=== PATIENT | male | born 1955 | race Caucasian/White ===

== ENCOUNTER 2016-08-07 12:29 | Emergency (ER) | payer SELFPAY ==
[2016-08-07] MEDS ORDERED: CEFAZOLIN 1 Gram 1 GM/50 ML BAG IVPB ONE (12:46)
--- NOTE | 2016-08-07 12:47 | Emergency Department Record ---
History of Present Illness - General Time Seen by Provider: 08/07/16 12:40 Source: Patient Mode of Arrival: Ambulatory Limitations: No limitations - History of Present Illness Initial comments: 60 yo male presents with left sided calf pain for 3 months. During that time it has been checked once for a DVT at [facility]. He has had multiple international flights as well. He has warmth, redness, swelling and pain. No numbness or tingling. No fever. No pus or oozing. He was treated with a water pill with some improvement but he had bilateral swelling then. PCP Hers[place]. DEL ROSARIO Complaint: Extremity pain, Extremity swelling -: Month(s) (3) Location: Left History of Same: Yes -: No Arthralgia, No Fever, Yes Myalgia Quality: Aching Consistency: Constant Improves with: Elevation, Immobilization Worsens with: Exertion, Palpation, Walking, Weight bearing Associated Symptoms: Denies other symptoms - Related Data Home Medications Medication Instructions Recorded Confirmed Last Taken Insulin Regular, Human [Humulin R 30 unit SQ TID 08/07/16 08/07/16 08/06/16 U-500 Kwikpen] Previous Rx's Medication Instructions Recorded Cephalexin [Keflex] 500 mg PO QID #40 cap 08/07/16 Allergies Allergy/AdvReac Type Severity Reaction Status Date / Time NO KNOWN DRUG ALLERGY Allergy no Uncoded 08/07/16 12:46 allergies Review of Systems Constitutional: Denies: Chills, Fever, Malaise, Weakness Eyes: Denies: Eye discharge Respiratory: Denies: Cough, Dyspnea, Hemoptysis, Stridor, Wheezes Cardiovascular: Denies: Chest pain, Palpitations, Syncope Endocrine: Denies: Fatigue Gastrointestinal: Denies: Abdominal pain, Diarrhea, Nausea, Vomiting Genitourinary: Denies: Dysuria, Frequency, Hematuria, Urgency Musculoskeletal: Reports: As per HPI, Myalgia. Denies: Arthralgia, Back pain, Joint swelling Skin: Reports: As per HPI, Change in color Neurological: Denies: Headache Psychiatric: Denies: Anxiety Hematological/Lymphatic: Denies: Blood Clots, Easy bleeding, Easy bruising, Swollen glands Physical Exam - General General Appearance: Alert, Oriented x3, Cooperative, No acute distress Limitations: No limitations - Head Head exam: Normal inspection - Eye Eye exam: Normal appearance, PERRL. negative: Conjunctival injection, Periorbital swelling, Scleral icterus - ENT ENT exam: Normal exam Ear exam: Normal external inspection Nasal Exam: Normal inspection Mouth exam: Normal external inspection - Neck Neck exam: Normal inspection, Full ROM. negative: Tenderness - Respiratory Respiratory exam: Normal lung sounds bilaterally. negative: Respiratory distress - Cardiovascular Cardiovascular Exam: Regular rate, Normal rhythm, Normal heart sounds Peripheral Pulses: 2+: Dorsalis Pedis (L) - GI/Abdominal GI/Abdominal exam: Soft. negative: Tenderness - Rectal Rectal exam: Deferred - exam: Deferred - Extremities Extremities exam: Full ROM, Normal capillary refill, Pedal edema, Tenderness. negative: Normal inspection Image of Full Body: 1 - mild swelling compared to the right, mild erythema and warm, few tiny abrasions - Back Back exam: Reports: Normal inspection, Full ROM. Denies: Muscle spasm, Rash noted, Tenderness - Neurological Neurological exam: Alert, Normal gait, Oriented X3, Reflexes normal - Psychiatric Psychiatric exam: Normal affect, Normal mood. negative: Agitated - Skin Skin exam: Erythema Course - Reevaluation(s) Reevaluation #1: The labs were reviewed No acute changes on the CBC CRP is 3.2 UA is normal at 6.7 Glucose is normal at 400 with a normal HCO3 and AG. No DKA 08/07/16 13:49 Reevaluation #2: The venous doppler was negative for DVT WE discussed home care and antibiotics We discussed close glucose monitoring while he has an infection 08/07/16 16:16 Medical Decision Making - Lab Data Result diagrams: 08/07/16 13:11 08/07/16 13:11 Disposition Disposition: Discharge Clinical Impression: Cellulitis Qualifiers: Site of cellulitis: extremity Site of cellulitis of extremity: lower extremity Laterality: left Qualified Code(s): L03.116 - Cellulitis of left lower limb Disposition: Home, Self-Care Condition: (1) Good Instructions: Cellulitis (ED) Additional Instructions: Elevate the leg as much as possible Keflex 4 times daily Return immediately if worse, pain, fever, drainage or concerns Prescriptions: Cephalexin [Keflex] 500 mg PO QID #40 cap Time of Disposition: 16:17
[2016-08-07 13:19] LABS: HEMATOCRIT 36.9 % (42.0-52.0); HEMOGLOBIN 12.2 gm/dl (14.0-18.0); MEAN CELL VOLUME 79.2 fl (81-97); MEAN CORPUSCULAR HGB CONC 33.1 g/dl (32-36); MEAN PLATELET VOLUME 9.6 fl (7.4-10.4); PLATELET COUNT 352 K/uL (130-400); RED BLOOD COUNT 4.66 M/uL (4.40-5.70); RED CELL DISTRIBUTION WIDTH 14.3 % (11.5-14.5); WHITE BLOOD COUNT W/O DIFF 9.8 K/uL (4.2-12.2)
[2016-08-07 13:29] LABS: MEAN CORPUSCULAR HEMOGLOBIN 26.1 pg (27-33)
[2016-08-07 13:30] LABS: INR 0.9; PARTIAL THROMBOPLASTIN TIME 27.1 SECONDS (24.5-39.1); PROTHROMBIN TIME (PATIENT) 10.2 SECONDS (9.5-12.1)
[2016-08-07 13:32] LABS: ALBUMIN 4.2 gm/dL (3.5-5.0); ALKALINE PHOSPHATASE 131 U/L (38-126); ALT/SGPT 37 U/L (21-72); ANION GAP 12.6 (7-16); AST/SGOT 22 U/L (17-59); BILIRUBIN,TOTAL 0.71 mg/dL (0.2-1.3); BLOOD UREA NITROGEN 15 mg/dL (9-20); C-REACTIVE PROTEIN 3.2 mg/dL (0.0-0.9); CARBON DIOXIDE 25.4 mmol/L (22-30); CREATININE 0.9 mg/dL (0.66-1.25); EST GLOMERULAR FILTRATION RATE > 60 ml/min; GLUCOSE,RANDOM 400 mg/dL (70-110); TOTAL PROTEIN 8.4 gm/dL (6.3-8.2)
[2016-08-07 13:37] LABS: PLATELET ESTIMATE NORMAL (NORMAL)
[2016-08-07 14:02] LABS: ERYTHROCYTE SEDIMENTATION RATE 80 mm/hr (0-20)
[2016-08-07] MEDS ORDERED: HUMULIN R 100 UNIT/ML VIAL SQ ONE (14:04)
--- NOTE | 2016-08-08 08:45 | US VENOUS DOPPLER REPORT ---
DATE: 08/07/2016. EXAM: VENOUS ULTRASOUND OF THE RIGHT LOWER EXTREMITY. HISTORY: RIGHT CALF PAIN. TECHNIQUE: Sonographic evaluation of the venous system of the right lower extremity was performed with the addition of Doppler compression augmentation. FINDINGS: There is no evidence of deep vein thrombosis identified in the greater saphenous, femoral, to the popliteal vein. The peroneal, posterior tibial, and anterior tibial veins are patent. IMPRESSION: NO SONOGRAPHIC EVIDENCE OF DEEP VEIN THROMBOSIS. JOB NUMBER: [id number] [facility]
== END 2016-08-07 16:35 | disposition home or self-care (01) ==
LOC: ER 12:29
DX: L03.116 Cellulitis of left lower limb (principal); M79.662 Pain in left lower leg; E11.9 Type 2 diabetes mellitus without complications; Z79.4 Long term (current) use of insulin
CPT/HCPCS: 99284 ×2; 96374; 96372; 84550; 85651; 85730; 85610; 86140; 80053; 85027; 93971; J0690

== ENCOUNTER 2017-03-06 18:09 | Inpatient (IN) | payer MEDICAID ==
--- NOTE | 2017-03-06 18:55 | Emergency Department Record ---
History of Present Illness - General Stated Complaint: LEFT LEG PAIN Time Seen by Provider: 03/06/17 18:49 Source: Patient Mode of Arrival: Ambulatory Limitations: No limitations - History of Present Illness Initial comments: 61 yo male presents to ED for evaluation of worsening redness, swelling, and "weeping discharge" from his left lower extremity. Patient reports a history of lymphedema for some time, has been taking Clindamycin and Doxycycline for 10 months with no significant improvement. Patient reports undergoing Doppler's x 2 that have all been negative for DVT. Patient denies history of CHF. Location: Left Radiation: Non-Radiating Quality: Aching Consistency: Constant Improves with: None Worsens with: None Associated Symptoms: Denies other symptoms - [place] Coma Scale Eye Response: (4) Open spontaneously Motor Response: (6) Obeys commands Verbal Response: (5) Oriented [place] Total: 15 - Related Data Allergies Allergy/AdvReac Type Severity Reaction Status Date / Time NO KNOWN DRUG ALLERGY Allergy no Uncoded 03/06/17 19:03 allergies Review of Systems Constitutional: Denies: Chills, Fever, Malaise, Night sweats Eyes: Denies: Eye discharge, Eye pain ENT: Denies: Congestion, Ear pain, Epistaxis Respiratory: Reports: Dyspnea. Denies: Cough Cardiovascular: Reports: Dyspnea on exertion, Edema. Denies: Chest pain Endocrine: Denies: Fatigue, Heat or cold intolerance Gastrointestinal: Denies: Abdominal pain, Nausea, Vomiting Genitourinary: Denies: Incontinence, Retention Musculoskeletal: Denies: Arthralgia, Back pain, Gout, Joint swelling Skin: Reports: Change in color. Denies: Bruising Neurological: Denies: Abnormal gait, Confusion, Headache Psychiatric: Denies: Anxiety Hematological/Lymphatic: Denies: Anemia, Blood Clots Past Medical History - SOCIAL HISTORY Drug Use: None - RESPIRATORY Hx Respiratory Disorders: No - CARDIOVASCULAR Hx Cardio Disorders: Yes Hx Hypertension: Yes - NEURO Hx Neuro Disorders: No - GI Hx GI Disorders: Yes Hx Reflux: Yes - Hx Genitourinary Disorders: No - ENDOCRINE Hx Endocrine Disorders: Yes Hx Diabetes: Yes - MUSCULOSKELETAL Hx Musculoskeletal Disorders: No - PSYCH Hx Psych Problems: No - HEMATOLOGY/ONCOLOGY Hx Hematology/Oncology Disorders: No Physical Exam - General General Appearance: Alert, Oriented x3, Cooperative, Mild distress Limitations: No limitations - Head Head exam: Atraumatic, Normocephalic, Normal inspection Head exam detail: negative: Abrasion, Contusion, Mason's sign, General tenderness, Hematoma, Laceration - Eye Eye exam: Normal appearance. negative: Conjunctival injection, Periorbital swelling, Periorbital tenderness, Scleral icterus - ENT Ear exam: negative: Auricular hematoma, Auricular trauma Nasal Exam: negative: Active bleeding, Discharge, Dried blood, Foreign body Mouth exam: negative: Drooling, Laceration, Muffled voice, Tongue elevation - Neck Neck exam: Normal inspection. negative: Meningismus, Tenderness - Respiratory Respiratory exam: Normal lung sounds bilaterally. negative: Respiratory distress, Rhonchi, Stridor, Wheezes - Cardiovascular Cardiovascular Exam: Regular rate, Normal rhythm, Normal heart sounds - GI/Abdominal GI/Abdominal exam: Soft. negative: Rebound, Rigid, Tenderness - Rectal Rectal exam: Deferred - exam: Deferred - Extremities Extremities exam: Pedal edema, Other (Bilateral LE edema with venous venous stasis changes present to the LEs, mild clear fluid is present from the posterior aspect of the LLE.). negative: Calf tenderness, Tenderness - Back Back exam: Denies: CVA tenderness (R), CVA tenderness (L) - Neurological Neurological exam: Alert, Normal gait, Oriented X3 - Psychiatric Psychiatric exam: Normal affect, Normal mood - Skin Skin exam: Erythema Type of lesion: negative: abrasion Course - Reevaluation(s) Reevaluation #1: 03/06/17 19:10 EKG: NSR 99 Normal axis, RBBB No acute ST-T wave changes Reevaluation #2: 03/06/17 20:01 Labs reviewed, WBC 10.8, Hgb 10.7 with HCT 26. ESR 79 CRP 4.86 BUN 31/Creatinine 1.4. Glucose 498. Insulin ordered. CXR: No acute process identified. Case was discussed with hSayna, will admit for failed outpatient cellulitis of the left lower extremity and hyperglycemia. Medical Decision Making - Lab Data Result diagrams: 03/06/17 19:17 03/06/17 19:17 Disposition Disposition: Admit Clinical Impression: Hyperglycemia Cellulitis of lower extremity Qualifiers: Laterality: left Qualified Code(s): L03.116 - Cellulitis of left lower limb Disposition: Still a Patient at [facility] Decision to Admit: Admit from ER Decision to Admit Date: 03/06/17 Decision to Admit Time: 20:06 Condition: (2) Stable Time of Disposition: 20:06 Quality - Quality Measures Quality Measures: N/A - Blood Pressure Screening Does Patient Have Any of the Following: No Blood Pressure Classification: Hypertensive Reading Systolic Measurement: 176 Diastolic Measurement: 74 Screening for High Blood Pressure: < First Hypertensive BP, F/U Documented > [ [id number]] First Hypertensive Follow-up Interventions: Referral to alternative/primary care provider.
[2017-03-06 19:23] LABS: HEMATOCRIT 33.5 % (42.0-52.0); HEMOGLOBIN 10.8 gm/dl (14.0-18.0); MEAN CELL VOLUME 83.1 fl (81-97); MEAN CORPUSCULAR HGB CONC 32.2 g/dl (32-36); MEAN PLATELET VOLUME 10.2 fl (7.4-10.4); PLATELET COUNT 351 K/uL (130-400); RED BLOOD COUNT 4.03 M/uL (4.40-5.70); WHITE BLOOD COUNT W/O DIFF 10.7 K/uL (4.2-12.2)
[2017-03-06 19:25] LABS: MEAN CORPUSCULAR HEMOGLOBIN 26.7 pg (27-33)
[2017-03-06 19:32] LABS: BLOOD UREA NITROGEN 31 mg/dL (8-23); CREATININE 1.4 mg/dL (0.7-1.2); EST GLOMERULAR FILTRATION RATE 55 mL/min
[2017-03-06 19:33] LABS: TOTAL PROTEIN 7.7 g/dL (6.6-8.7)
[2017-03-06 19:38] LABS: ALBUMIN 3.9 g/dL (4.0-5.0); ALKALINE PHOSPHATASE 100 U/L (40-129); ALT/SGPT 21 U/L (<41); AST/SGOT 16 U/L (10.0-50.0); C-REACTIVE PROTEIN 4.86 mg/dL (<0.5)
[2017-03-06 19:48] LABS: NTpro B-NATRIURETIC PEPTIDE 14.87 pg/mL (<125)
[2017-03-06 19:54] LABS: ERYTHROCYTE SEDIMENTATION RATE 79 mm/hr (0-20)
[2017-03-06] MEDS ORDERED: HUMULIN R 100 UNIT/ML VIAL IV ONE (20:00)
[2017-03-06] MEDS ORDERED: VANCOMYCIN HCL 1,000 MG in 0.9 % SODIUM CHLORIDE 250ML 250 ML IVPB ONE (20:05)
[2017-03-06 20:50] LABS: GLUCOSE,RANDOM 498 mg/dL (74-109)
[2017-03-06] MEDS ORDERED: MONTELUKAST SODIUM 10MG TABLET PO SCH (21:14)
[2017-03-06] MEDS ORDERED: CHLORTHALIDONE 25 MG TABLET PO SCH (21:14)
[2017-03-06] MEDS ORDERED: ATORVASTATIN 20 MG TABLET PO SCH (21:14)
[2017-03-06] MEDS ORDERED: ACETAMINOPHEN 500 MG TABLET PO PRN (21:14)
[2017-03-06] MEDS ORDERED: VANCOMYCIN HCL 1,500 MG in 0.9 % SODIUM CHLORIDE 500ML 500 ML IVPB SCH (21:14)
[2017-03-06] MEDS ORDERED: ALBUTEROL HFA 8 GM INHALER INH PRN (23:05)
[2017-03-06] MEDS ORDERED: HUMULIN R 100 UNIT/ML VIAL SC SCH (23:15)
[2017-03-06] MEDS: METFORMIN 500 MG TABLET PO SCH (23:35)
[2017-03-06] MEDS: LEVEMIR FLEXTOUCH 100 UNIT/ML INSULIN PEN SQ SCH (23:36)
[2017-03-06] MEDS: PRAMIPEXOLE DI-HCL 0.25 MG TABLET PO SCH (23:37)
[2017-03-06] MEDS: GABAPENTIN 300 MG CAPSULE PO SCH (23:37)
[2017-03-07] MEDS ORDERED: VANCOMYCIN HCL 1,250 MG in 0.9 % SODIUM CHLORIDE 250ML 250 ML IVPB SCH ×2 (02:00→15:00)
[2017-03-07] MEDS ORDERED: VANCOMYCIN HCL 1,000 MG in 0.9 % SODIUM CHLORIDE 250ML 250 ML IVPB ONE (03:00)
[2017-03-07 06:57] LABS: HEMATOCRIT 33.7 % (42.0-52.0); HEMOGLOBIN 10.7 gm/dl (14.0-18.0); MEAN CELL VOLUME 82.8 fl (81-97); MEAN CORPUSCULAR HGB CONC 31.8 g/dl (32-36); MEAN PLATELET VOLUME 10.5 fl (7.4-10.4); PLATELET COUNT 332 K/uL (130-400); RED BLOOD COUNT 4.07 M/uL (4.40-5.70); RED CELL DISTRIBUTION WIDTH 15.2 % (11.5-14.5); WHITE BLOOD COUNT W/O DIFF 9.5 K/uL (4.2-12.2)
[2017-03-07 07:00] LABS: MEAN CORPUSCULAR HEMOGLOBIN 26.2 pg (27-33)
[2017-03-07 07:17] LABS: ALB/GLOB RATIO 0.9 (1.1-1.8); ALBUMIN 3.8 g/dL (4.0-5.0); ALKALINE PHOSPHATASE 106 U/L (40-129); ALT/SGPT 20 U/L (<41); AST/SGOT 12 U/L (10.0-50.0); BLOOD UREA NITROGEN 25 mg/dL (8-23); CREATININE 1.2 mg/dL (0.7-1.2); EST GLOMERULAR FILTRATION RATE > 60 mL/min; GLUCOSE,RANDOM 386 mg/dL (74-109); TOTAL PROTEIN 7.9 g/dL (6.6-8.7)
--- NOTE | 2017-03-07 07:36 | RADIOLOGY REPORT ---
EXAM: CHEST, TWO VIEWS HISTORY: DIFFICULTY IN BREATHING. TECHNIQUE: PA and lateral views of the chest were obtained. Comparison: None. FINDINGS: The heart size is within normal limits. Apical pleural thickening particularly on the right medially. This area is partially obscured by the patient's chin on the frontal view. No definite acute infiltrate seen and no pleural effusion or pneumothorax evident. Prominent spurring in the mid to lower thoracic spine. Small nodule laterally on the right. This is likely a small granuloma. Old films are suggested to confirm. IMPRESSION: 1. PROMINENT SPURRING IN THE MID TO LOWER THORACIC SPINE. 2. PROMINENT APICAL PLEURAL THICKENING ON THE RIGHT MEDIALLY, PARTIALLY OBSCURED BY THE PATIENT'S CHIN. 3. PROBABLE SMALL GRANULOMA RIGHT LOWER LUNG LATERALLY. 4. RECOMMEND COMPARISON WITH OLD FILMS. JOB NUMBER: [id number] [facility]
[2017-03-07] MEDS: METFORMIN 500 MG TABLET PO SCH ×2 (08:34→16:57)
[2017-03-07] MEDS: PRAMIPEXOLE DI-HCL 0.25 MG TABLET PO SCH ×2 (09:09→23:09)
[2017-03-07] MEDS: CHLORTHALIDONE 25 MG TABLET PO SCH (09:10)
[2017-03-07] MEDS: MONTELUKAST SODIUM 10MG TABLET PO SCH (09:10)
[2017-03-07] MEDS: LISINOPRIL 20 MG TABLET PO SCH (09:10)
[2017-03-07] MEDS: GABAPENTIN 300 MG CAPSULE PO SCH ×3 (09:11→23:10)
[2017-03-07] MEDS: LEVEMIR FLEXTOUCH 100 UNIT/ML INSULIN PEN SQ SCH ×2 (09:11→23:11)
[2017-03-07] MEDS: HUMULIN R U SC SCH ×3 (09:17→23:12)
[2017-03-07] MEDS ORDERED: ALBUTEROL HFA 8 GM INHALER INH PRN (09:30)
[2017-03-07] MEDS: TRAMADOL HCL 50 MG TABLET PO PRN ×2 (10:55→23:07)
--- NOTE | 2017-03-07 11:57 | History & Physical ---
History of Present Illness - Date of Service Date of Service for History & Physical: 03/07/17 - History of Present Illness Admitting Diagnosis: Cellulitis LLE-failed outpatient antibiotic therapy. Hyperglycemia History of Present Illness: Mr. Estrella is a 61 year-old male who presented to the ED on the evening of 03/06/17 for evaluation of worsening redness, swelling, and weeping discharge of his left lower extremity. He reported a history of lymphedema for several months, has been taking clindamycina and doxycycline for 10 months without significant improvement. Pt. reported undergoing dopplers x2 that were negative for DVT. He denies history of CHF. His history includes: hypertension, uncontrolled type 2 diabetes (managed by endocrinology), lymphedema, and GERD. In the ED, his BP was 176/74, HR 103, RR 20, 97% on room air, and T 98.2F. Labs were done and his WBC was 10.8, Hgb 10.7, Hct 26. An EKG was done and demonstrated NSR, rate 99, right BBB. Chest xray was done and no acute process identified. He was admitted for inpatient management of LLE cellulitis. 03/07/17: Pt. is sitting up in bed, he is pleasant and cooperative. His LLE is painful with palpation, ultram was ordered and pt. reports that it is helpful. Plan to continue IV vanco, dosed by pharmacy. PT mahesh ordered to soft tissue massage/exercises for lymphedema. DANA britton ordered. Will continue to monitor renal function with vanco and glucose levels, CBC with diff. Travel Screening - Travel/Exposure Within Last 30 Days Have you traveled within the last 30 days?: No - Travel/Exposure Within Last Year Have you traveled outside the [place] in the last year?: Yes [facility] Add[facility]onal Travel Details Have you been exposed to anyone with a communicable illness?: No - Travel Symptoms Symptom Screening: None Review of Systems Constitutional: Denies: Chills, Fever, Malaise, Night sweats Eyes: Denies: Eye discharge, Eye pain ENT: Denies: Congestion, Ear pain, Epistaxis Respiratory: Denies: Cough Cardiovascular: Reports: Edema. Denies: Chest pain Endocrine: Denies: Fatigue, Heat or cold intolerance Gastrointestinal: Denies: Abdominal pain, Nausea, Vomiting Genitourinary: Denies: Incontinence, Retention Musculoskeletal: Denies: Arthralgia, Back pain, Gout, Joint swelling Skin: Reports: Change in color. Denies: Bruising Neurological: Denies: Abnormal gait, Confusion, Headache Psychiatric: Denies: Anxiety Hematological/Lymphatic: Denies: Anemia, Blood Clots Past Medical History - SOCIAL HISTORY Smoking Status: Never smoker Alcohol Use: Rare Drug Use: None - RESPIRATORY Hx Respiratory Disorders: No - CARDIOVASCULAR Hx Cardio Disorders: Yes Hx Hypertension: Yes - NEURO Hx Neuro Disorders: No - GI Hx GI Disorders: Yes Hx Reflux: Yes - Hx Genitourinary Disorders: No - ENDOCRINE Hx Endocrine Disorders: Yes Hx Diabetes: Yes - MUSCULOSKELETAL Hx Musculoskeletal Disorders: No - PSYCH Hx Psych Problems: No - HEMATOLOGY/ONCOLOGY Hx Hematology/Oncology Disorders: No Family Medical History Any Significant Family History?: No H&P Meds/Allergies - Allergies Allergies: Allergies Allergy/AdvReac Type Severity Reaction Status Date / Time NO KNOWN DRUG ALLERGY Allergy no Uncoded 03/06/17 19:03 allergies - Home Medications Home Medications Medication Instructions Recorded Confirmed Last Taken Insulin Regular, Human [Humulin R 40 unit SQ Q8HR 03/07/17 03/07/17 Unknown U-500 Kwikpen] - Active Medications Active Medications: Current Medications Acetaminophen (Tylenol 500mg Tab) 1,000 mg PO Q6H PRN PRN Reason: PAIN/TEMP Albuterol Sulfate (Ventolin Hfa) 2 puff INH Q4HR PRN PRN Reason: DIFFICULTY IN BREATHING Atorvastatin Calcium (Lipitor) 20 mg PO QHS [facility] Chlorthalidone (Chlorthalidone) 25 mg PO DAILY [facility] Last Admin: 03/07/17 09:10 Dose: 25 mg Gabapentin (Neurontin) 600 mg PO TID [facility] Last Admin: 03/07/17 09:11 Dose: 600 mg Vancomycin HCl 1,000 mg/ (Sodium Chloride) 250 mls @ 250 mls/hr IVPB Q12H [facility] Stop: 03/12/17 12:01 Vancomycin HCl 750 mg/ Sodium (Chloride) 250 mls @ 250 mls/hr IVPB Q12H [facility] Insulin Detemir (Levemir Flextouch) 50 unit SQ BID [facility] Last Admin: 03/07/17 09:11 Dose: 50 unit Lisinopril (Zestril) 40 mg PO DAILY [facility] Last Admin: 01/31/18 09:10 Dose: 40 mg Metformin HCl (Glucophage Ir) 1,000 mg PO BIDWM [facility] Last Admin: 03/07/17 08:34 Dose: 1,000 mg Montelukast Sodium (Singulair) 10 mg PO DAILY [facility] Last Admin: 03/07/17 09:10 Dose: 10 mg Patient Own Med: (Humulin R U-500) 1 each SC Q8HR [facility] Last Admin: 03/07/17 09:17 Dose: 1 each Pramipexole Dihydrochloride (Pramipexole Dihydrochloride) 1 mg PO BID [facility] Last Admin: 03/07/17 09:09 Dose: 1 mg Tramadol HCl (Ultram) 50 mg PO Q8H PRN PRN Reason: Pain - General Last Admin: 03/07/17 10:55 Dose: 50 mg Physical Exam - Vital Signs Vital Signs: Vital Signs - Last 24 Hrs Temp Pulse Pulse Pulse Resp BP Pulse Ox 03/07/17 09:00 98.7 F 96 H 18 144/70 98 03/07/17 08:36 90 20 03/07/17 05:14 98.4 F 96 H 20 142/61 97 03/06/17 21:14 97.7 F 103 H 20 161/83 97 - General General Appearance: Alert, Oriented x3, Cooperative, No acute distress Limitations: No limitations - Head Head exam: Atraumatic, Normocephalic, Normal inspection Head exam detail: negative: Abrasion, Contusion, Mason's sign, General tenderness, Hematoma, Laceration - Eye Eye exam: Normal appearance. negative: Conjunctival injection, Periorbital swelling, Periorbital tenderness, Scleral icterus - ENT Ear exam: negative: Auricular hematoma, Auricular trauma Nasal Exam: negative: Active bleeding, Discharge, Dried blood, Foreign body Mouth exam: negative: Drooling, Laceration, Muffled voice, Tongue elevation - Neck Neck exam: Normal inspection. negative: Meningismus, Tenderness - Respiratory Respiratory exam: Normal lung sounds bilaterally. negative: Respiratory distress, Rhonchi, Stridor, Wheezes - Cardiovascular Cardiovascular Exam: Regular rate, Normal rhythm, Normal heart sounds - GI/Abdominal GI/Abdominal exam: Soft. negative: Rebound, Rigid, Tenderness - Rectal Rectal exam: Deferred - exam: Deferred - Extremities Extremities exam: Pedal edema, Other (Bilateral LE edema with venous venous stasis changes present to the LEs, mild clear fluid is present from the posterior aspect of the LLE.). negative: Calf tenderness, Tenderness - Back Back exam: Denies: CVA tenderness (R), CVA tenderness (L) - Neurological Neurological exam: Alert, Normal gait, Oriented X3 - Psychiatric Psychiatric exam: Normal affect, Normal mood - Skin Skin exam: Erythema (LLE) Type of lesion: negative: abrasion Results - Labs Result Diagrams: 03/07/17 06:24 03/07/17 06:24 Labs Last 24 Hours: Laboratory Results - last 24 hr 03/07/17 03/07/17 06:24 06:24 WBC 9.5 RBC 4.07 L Hgb 10.7 L Hct 33.7 L MCV 82.8 MCH 26.2 L MCHC 31.8 L RDW 15.2 H Plt Count 332 MPV 10.5 H Neutrophils % 70.0 Band Neutrophils % 3.0 Eosinophils % Not Reportable Basophils % Not Reportable Lymphocytes 19.0 Monocytes 5.0 Basophils 0.0 Eosinophil Count 3.0 Sodium 136 Potassium 4.7 H Chloride 98 Carbon Dioxide 24.0 Anion Gap 14.0 BUN 25 H Creatinine 1.2 Estimated GFR > 60 Random Glucose 386 H Calcium 8.9 Total Bilirubin 0.40 AST 12 ALT 20 Alkaline Phosphatase 106 Total Protein 7.9 Albumin 3.8 L Globulin 4.1 Albumin/Globulin Ratio 0.9 L - Imaging and Cardiology Chest x-ray Status: Report reviewed (possible small granuloma in right lower lung, recommend comparison with older film) VTE H&P Assessment - Risk for VTE Risk for VTE: Yes Risk Level: Very Low Risk Assessment Date: 03/07/17 (age, co-morbidity of DM) Risk Assessment Time: 11:56 VTE Orders Placed or Will Be Placed: Yes Plan - Inpatient Certification Inpatient Certification: Admit to inpatient care: Based on my medical assessment, after consideration of patient's risk factors (age, co-morbidities and patient presenting symptoms and acuity), I expect that this patient will remain in the hospital greater than or equal to two midnights and that the services needed warrant inpatient care because: Patient Risk Factors: [Age, hyperglycemia, failed outpatient treatement for LLE cellutitis] Estimated length of stay: [48-72 hours] The patient may reasonably be expected to be discharged or transferred to a hospital within 96 hours after admission to [facility]. Services needed: [IV antibiotics, close monitoring of renal function and glucose , PT for lymphedema] Post hospital care (if known): [] I certify that my determination is in accordance with my understanding of Medicare requirements for reasonable and necessary inpatient services. 03/07/17 11:56 - Detailed Diagnosis and Plan (1) Cellulitis of lower extremity Current Visit: Yes Status: Acute Qualifiers: Laterality: left Qualified Code(s): L03.116 - Cellulitis of left lower limb Base Code: L03.119 - CELLULITIS OF UNSPECIFIED PART OF LIMB Comment: 03/07/17: Pt. presented to the ED yesterday, 03/06, after experiencing worsening LLE cellulitis. He has been treated for about 10 months with doxy and clinda, but swelling and redness persisted with treatment. Pt. started on vanco, dosed by pharmacy. Will continue to monitor renal function with vanco use. PT ordered for soft-tissue lymphedema exercises. DANA britton applied. (2) Hyperglycemia Current Visit: Yes Status: Acute Base Code: R73.9 - HYPERGLYCEMIA, UNSPECIFIED Comment: 03/07/17: Pt. is type 2 diabetic, managed by endocrinology. Recent LLE cellulits likely worsening hyperglycemia. Plan to continue pt's home diabetes meds as scheduled. Consulted nutrition to discuss dietary modifications with pt. Will check A1C tomorrow, 03/08. (3) At risk for deep venous thrombosis Current Visit: Yes Status: Acute Base Code: Z91.89 - OTH PERSONAL RISK FACTORS, NOT ELSEWHERE CLASSIFIED Comment: 03/07/17: Pt. at increased risk for DVT with LE cellulitis and diabetes. Plan to start SC lovenox 40mg daily tomorrow, 03/08. (4) Full code status Current Visit: Yes Status: Acute Base Code: Z78.9 - OTHER SPECIFIED HEALTH STATUS Comment: 03/07/17: Pt. is full code status
[2017-03-07] MEDS: VANCOMYCIN HCL 1,000 MG in 0.9 % SODIUM CHLORIDE 250ML 250 ML IVPB SCH ×2 (12:04→23:58)
[2017-03-07] MEDS: VANCOMYCIN HCL 750 MG in 0.9 % SODIUM CHLORIDE 250ML 250 ML IVPB SCH (13:16)
--- NOTE | 2017-03-07 15:08 | Rehab Evaluation ---
Patient Information - Patient Information Diagnosis: L LE cellulitis Ordered Treatment: PT Evaluate and Treat Status: Initial Evaluation History: Detail (The patient arrived in ED on 03/06/17 with worsening redness, increased swelling and drainage.) Past Medical/Surgical Hx: PAST MEDICAL/SURGICAL HISTORY Past Surgical History Hernia repair PMH - Respiratory Hx Respiratory Disorders No PMH - Cardiovascular Hx Cardiovascular Disorders Yes Hx Hypertension Yes PMH - Neuro Hx Neurological Disorders No PMH - GI Hx Gastrointestinal Disorders Yes Hx Gastroesophageal Reflux Yes PMH - Hx Genitourinary Disorders No PMH - Endocrine Hx Endocrine Disorders Yes Hx Diabetes Yes PMH - Musculoskeletal Hx Musculoskeletal Disorders No PMH - Psych Hx Psychiatric Problems No PMH - Hematology/Oncology Hx Hematology/Oncology No Disorders Social History: Detail (The patient lives in an apartment on the second floor with a flight of stairs. The patient's bathroom was equipped with a tub/shower combination and standard toilet. The patient denies difficulty with mobility or transfers.) - Time With Patient Total Time Spent With Patient (Min): 30 Treatment Procedures: Detail (Initial Evaluation) Subjective Information - Subjective Information Per Patient (The patient complains of LE pain L side greater then R level 7 using 0 to 10 pain scale . The patient characterizes the pain as stabbing and the feeling of a sunburn from the inside out. The patient reports he has tried PT in the past for several visits for deep tissue massaging and he stated it did not help. The patient has also recently acquired wraps for his legs. The patient states he has also seen a labeling specialist were he received a cooling cream.) Objective Data - Mental Status Patient Orientation: Oriented x3 - Visual Perception Appears within normal limits for therapeutic activities - ROM Within normal limits - Strength/Tone Within normal limits (The patient's LE strength is generally 5/5.) - Bed Mobility Independent - Transfers Independent - Balance Balance Sitting: Good Balance Standing: Good - Sensation Intact (The patient reported hypersensitivity to touch L LE from knee to foot both anterior and posterior surfaces.) - Gait Detail (The patient was independent with ambulation to and from bathroom without assistive device.) - Special Tests Yes (Inspection: 2+ pitting edema L LE from knee to toes. Patient's L LE was hot to touch and deep red in color.) Therapy Assessment - Therapy Assessment Detail (Due to previous ineffective outpatient PT treatments for lymphdema and warm,red L LE at this time feel patient would not be a candidate for inpatient lymphdema treatments at this time. The patient was instructed to complete ankle pumps and ambulate which will help decrease edema as well as wear compression stockings.) Problem List - Problem List Physical Therapy Problem List: Detail (1) Increased edema B LE's 2) Hypersensitivity to touch L LE 3) Hot to touch L LE knee to toes.) Goals - Goals Physical Therapy Goals: No PT goals at this time. Patient was encouraged to complete exercise program including ambulation and ankle pumps. Plan - Plan Physical Therapy Plan: No ongoing inpatient PT is recommended at this time. Patient is to continue with medical management of LE to decrease edema. The patient was encouraged to ambulate.
[2017-03-07] MEDS ORDERED: ATORVASTATIN 20 MG TABLET PO SCH (22:00)
[2017-03-08] MEDS: VANCOMYCIN HCL 750 MG in 0.9 % SODIUM CHLORIDE 250ML 250 ML IVPB SCH ×2 (01:23→16:31)
[2017-03-08] MEDS: HUMULIN R U SC SCH (08:10)
[2017-03-08] MEDS: METFORMIN 500 MG TABLET PO SCH (08:17)
[2017-03-08] MEDS: CHLORTHALIDONE 25 MG TABLET PO SCH (09:28)
[2017-03-08] MEDS: GABAPENTIN 300 MG CAPSULE PO SCH (09:29)
[2017-03-08] MEDS: LISINOPRIL 20 MG TABLET PO SCH (09:29)
[2017-03-08] MEDS: PRAMIPEXOLE DI-HCL 0.25 MG TABLET PO SCH (09:29)
[2017-03-08] MEDS: MONTELUKAST SODIUM 10MG TABLET PO SCH (09:29)
[2017-03-08] MEDS: LEVEMIR FLEXTOUCH 100 UNIT/ML INSULIN PEN SQ SCH (09:30)
[2017-03-08] MEDS ORDERED: ENOXAPARIN 40 MG/0.4 ML SYR SQ SCH (10:00)
--- NOTE | 2017-03-08 11:12 | Discharge Summary ---
Providers Discharge Summary Date: 03/08/17 Date of admission: 03/06/17 21:02 Expected Date of Discharge: 03/08/17 Attending physician: STEFANIA PEREYRA Primary care physician: Ave Chambers N.P. Physical Exam - Vital Signs Vital Signs: Vital Signs - Last 24 Hrs Temp Pulse Pulse Pulse Resp BP Pulse Ox 03/08/17 09:00 82 83 80 18 03/08/17 06:00 98.9 F 83 18 138/70 03/07/17 20:00 98.4 F 82 18 124/68 96 03/07/17 17:00 97.7 F 92 H 18 138/63 99 - General General Appearance: Alert, Oriented x3, Cooperative, No acute distress Limitations: No limitations - Head Head exam: Atraumatic, Normocephalic, Normal inspection Head exam detail: negative: Abrasion, Contusion, Mason's sign, General tenderness, Hematoma, Laceration - Eye Eye exam: Normal appearance. negative: Conjunctival injection, Periorbital swelling, Periorbital tenderness, Scleral icterus - ENT Ear exam: negative: Auricular hematoma, Auricular trauma Nasal Exam: negative: Active bleeding, Discharge, Dried blood, Foreign body Mouth exam: negative: Drooling, Laceration, Muffled voice, Tongue elevation - Neck Neck exam: Normal inspection. negative: Meningismus, Tenderness - Respiratory Respiratory exam: Normal lung sounds bilaterally. negative: Respiratory distress, Rhonchi, Stridor, Wheezes - Cardiovascular Cardiovascular Exam: Regular rate, Normal rhythm, Normal heart sounds - GI/Abdominal GI/Abdominal exam: Soft. negative: Rebound, Rigid, Tenderness - Rectal Rectal exam: Deferred - exam: Deferred - Extremities Extremities exam: Pedal edema, Other (Bilateral LE edema with venous venous stasis changes present to the LEs, mild clear fluid is present from the posterior aspect of the LLE.). negative: Calf tenderness, Tenderness - Back Back exam: Denies: CVA tenderness (R), CVA tenderness (L) - Neurological Neurological exam: Alert, Normal gait, Oriented X3 - Psychiatric Psychiatric exam: Normal affect, Normal mood - Skin Skin exam: Erythema (LLE) Type of lesion: negative: abrasion Hospitalization - Hospitalization Admission Diagnosis: Cellulitis LLE-failed outpatient antibiotic therapy. Hyperglycemia - Problem List/Discharge Diagnosis (1) Cellulitis of lower extremity Current Visit: Yes Status: Acute Discharge Diagnosis: Laterality: left Qualified Code(s): L03.116 - Cellulitis of left lower limb Base Code: L03.119 - CELLULITIS OF UNSPECIFIED PART OF LIMB Comment: 03/08/17: Pt. presented to the ED 03/06 after experiencing worsening LLE cellulitis. He has been treated for about 10 months with doxy and clinda, but swelling and redness persisted with treatment. Pt. started on vanco, dosed by pharmacy. PT ordered for soft-tissue lymphedema exercises. DANA hose applied. Redness and swelling continue to improve, as well as pt's reported pain. Will plan to discharge home this afternoon after 1pm vanco infusion and set up outpatient vanco infustions, twice daily for 5 more days- to be dosed and managed per pharmacy. (2) Hyperglycemia Current Visit: Yes Status: Acute Base Code: R73.9 - HYPERGLYCEMIA, UNSPECIFIED Comment: 03/08/17: Pt. is type 2 diabetic, managed by endocrinology. Recent LLE cellulits likely worsening hyperglycemia. Continuing pt's home diabetes meds as scheduled. Consulted nutrition to discuss dietary modifications with pt. A1C will be checked with 1130 labs. Pt' s blood glucose levels have improved (83 to 137 over last 12 hours). Plan to discharge home this afternoon. (3) At risk for deep venous thrombosis Current Visit: Yes Status: Acute Base Code: Z91.89 - OTH PERSONAL RISK FACTORS, NOT ELSEWHERE CLASSIFIED Comment: 03/07/17: Pt. at increased risk for DVT with LE cellulitis and diabetes. SC lovenox 40mg daily. Plan to discharge home today- will not continue DVT prophylaxis after discharge because mobility not impaired. (4) Full code status Current Visit: Yes Status: Acute Base Code: Z78.9 - OTHER SPECIFIED HEALTH STATUS Comment: 03/08/17 1112: Pt. remains full code status. - Disposition Discharge home, self-care - Hospitalization Course Disposition: Home, Self-Care Hospital Course: Mr. Estrella is a 61 year-old male who presented to the ED on the evening of 03/06/17 for evaluation of worsening redness, swelling, and weeping discharge of his left lower extremity. He reported a history of lymphedema for several months, has been taking clindamycina and doxycycline for 10 months without significant improvement. Pt. reported undergoing dopplers x2 that were negative for DVT. He denies history of CHF. His history includes: hypertension, uncontrolled type 2 diabetes (managed by endocrinology), lymphedema, and GERD. In the ED, his BP was 176/74, HR 103, RR 20, 97% on room air, and T 98.2F. Labs were done and his WBC was 10.8, Hgb 10.7, Hct 26. An EKG was done and demonstrated NSR, rate 99, right BBB. Chest xray was done and no acute process identified. He was admitted for inpatient management of LLE cellulitis. 03/07/17: Pt. is sitting up in bed, he is pleasant and cooperative. His LLE is painful with palpation, ultram was ordered and pt. reports that it is helpful. Plan to continue IV vanco, dosed by pharmacy. PT mahesh ordered to soft tissue massage/exercises for lymphedema. DANA britton ordered. Will continue to monitor renal function with vanco and glucose levels, CBC with diff. 03/08/17 1400: Swelling and redness of left lower leg has decreased. Pt. reports decreased pain. Vital signs remain stable. Requested nursing staff to measure bilateral calfs prior to discharge and document in progress note. Pt's blood glucose has overall reduced, ranging from 87 to 140s. Plan to discharge home today after 1pm vanco infusion. Pt. is set up with OP vanco infusions twice daily for 5 days- to be dosed by pharmacy. Pt. to f/u with PCP 7-10 days after discharge. Abnormal Labs: Abnormal Lab Results 03/07/17 03/07/17 03/07/17 Range/Units 06:24 06:24 11:30 RBC 4.07 L (4.40-5.70) M/uL Hgb 10.7 L (14.0-18.0) gm/dl Hct 33.7 L (42.0-52.0) % MCH 26.2 L (27-33) pg MCHC 31.8 L (32-36) g/dl RDW 15.2 H (11.5-14.5) % MPV 10.5 H (7.4-10.4) fl Potassium 4.7 H (3.4-4.5) mmol/L BUN 25 H (8-23) mg/dL POC Glucose 365 H (70-110) mg/dL Random Glucose 386 H (74-109) mg/dL Albumin 3.8 L (4.0-5.0) g/dL Albumin/Globulin Ratio 0.9 L (1.1-1.8) 03/07/17 03/07/17 03/08/17 Range/Units 17:00 21:58 06:15 RBC (4.40-5.70) M/uL Hgb (14.0-18.0) gm/dl Hct (42.0-52.0) % MCH (27-33) pg MCHC (32-36) g/dl RDW (11.5-14.5) % MPV (7.4-10.4) fl Potassium (3.4-4.5) mmol/L BUN (8-23) mg/dL POC Glucose 261 H 134 H 117 H (70-110) mg/dL Random Glucose (74-109) mg/dL Albumin (4.0-5.0) g/dL Albumin/Globulin Ratio (1.1-1.8) 03/08/17 Range/Units 08:17 RBC (4.40-5.70) M/uL Hgb (14.0-18.0) gm/dl Hct (42.0-52.0) % MCH (27-33) pg MCHC (32-36) g/dl RDW (11.5-14.5) % MPV (7.4-10.4) fl Potassium (3.4-4.5) mmol/L BUN (8-23) mg/dL POC Glucose 138 H (70-110) mg/dL Random Glucose (74-109) mg/dL Albumin (4.0-5.0) g/dL Albumin/Globulin Ratio (1.1-1.8) Condition at Discharge: (2) Stable VTE Discharge VTE Reason For No Overlap Therapy: Not Indicated (Mobility not impaired) Discharge Medications - Discharge Medications Prescriptions: Tramadol HCl [Ultram] 50 mg PO BID PRN 10 Days #20 tablet PRN Reason: Pain - General Home Medications: Ambulatory Orders Insulin Regular, Human [Humulin R U-500 Kwikpen] 40 unit SQ Q8HR 03/07/17 [Last Taken Unknown] Tramadol HCl [Ultram] 50 mg PO BID PRN 10 Days #20 tablet 03/08/17 [Last Taken Unknown] Discharge Plan - Discharge Instructions Activity at Discharge: Resume Usual Activities As Tolerated Diet at Discharge: Diabetic Diet Additional Instructions: You will be scheduled for outpatient Vancomycin IV infusions twice daily for 5 days Please follow up with PCP within 7-10 days of discharge Return to ED if worsening swelling, redness, or pain in lower extremities, or uncontrolled high blood glucose levels. Quality Measures - Quality Measures Quality Measures: Documentation of Current Medications in Medical Record, Screening for High Blood Pressure and F/U Documented - Current Medications Quality Measure: Measure #130: Documentation of Current Medications Documentation of Current Medications: <Current Medications Documented/Reviewed> [G8427] - Blood Pressure Screening Quality Measure: Screening for High Blood Pressure and Follow-Up Documented Does Patient Have Any of the Following: Active Dx of HTN Blood Pressure Classification: Hypertensive Reading Systolic Measurement: 176 Diastolic Measurement: 74 Screening for High Blood Pressure: Patient Exclusion, Hx of HTN [G9744] - Elder Abuse Suspicion Index EASI Reference Information: Ashley LEE, Chanel C, Earl D, Leonel Stanton.Development and validation of a tool to assist physicians identification of elder abuse: The Elder Abuse Suspicion Index (EASI ). Journal of Elder Abuse and Neglect, 2008; 20 (3): 276-300.
[2017-03-08 11:36] LABS: BASO % 0.2 % (0-6); EOS % 4.3 % (0-6); GRAN % 70.1 % (47-80); HEMATOCRIT 34.4 % (42.0-52.0); HEMOGLOBIN 10.9 gm/dl (14.0-18.0); LYMPH % 18.3 % (16-45); MEAN CELL VOLUME 83.1 fl (81-97); MEAN CORPUSCULAR HEMOGLOBIN 26.3 pg (27-33); MEAN CORPUSCULAR HGB CONC 31.7 g/dl (32-36); MEAN PLATELET VOLUME 9.8 fl (7.4-10.4); MONO % 7.1 % (0-9); PLATELET COUNT 345 K/uL (130-400); RED BLOOD COUNT 4.14 M/uL (4.40-5.70); RED CELL DISTRIBUTION WIDTH 15.2 % (11.5-14.5)
[2017-03-08 11:53] LABS: BLOOD UREA NITROGEN 23 mg/dL (8-23); CREATININE 1.1 mg/dL (0.7-1.2); EST GLOMERULAR FILTRATION RATE > 60 mL/min; GLUCOSE,RANDOM 237 mg/dL (74-109)
[2017-03-08] MEDS: VANCOMYCIN HCL 1,000 MG in 0.9 % SODIUM CHLORIDE 250ML 250 ML IVPB SCH (12:56)
[2017-03-08] MEDS ORDERED: HUMULIN R U SC SCH (14:00)
== END 2017-03-08 14:47 | disposition home or self-care (01) | DRG 603 ==
LOC: ER 18:09 → MEDSURG 21:02 → OBSVTOIN 21:02
PROVIDERS: ADMIT Internal Medicine; ATTEND Internal Medicine
DX: L03.116 Cellulitis of left lower limb (principal); I10 Essential (primary) hypertension; E11.65 Type 2 diabetes mellitus with hyperglycemia; Z79.4 Long term (current) use of insulin
CPT/HCPCS: 36416; 71046; 80048; 80053; 80202; 82948; 83036; 83880; 84484; 85025; 85027; 85651; 86140; 93005; 93010; 96365; 96375; 99223; 99239; 99285; J1650; J7050

== ENCOUNTER 2017-03-14 12:12 | Emergency (ER) | payer MEDICAID ==
--- NOTE | 2017-03-14 13:37 | Emergency Department Record ---
History of Present Illness - General Chief complaint: Abscess Stated complaint: LEG INFECTION Time Seen by Provider: 03/14/17 13:26 Source: Patient, RN notes reviewed Mode of Arrival: Ambulatory - History of Present Illness Initial comments: patient has cellulitis in the left lower leg and he finished his IV antibiotics yesterday and leg is still swollen and some yellow serosangenous drainage. Redness in the leg is better and his legs are still very swollen. weight is up 15 pounds in two weeks. Patient just finished a course of vancomycin. Onset/Timin -: Year(s) Hx Tetanus Toxoid Vaccination: No Year of Tetanus Vaccination: unknown Location: LLE Severity: Moderate Severity scale (1-10): 2 Quality: Burning Consistency: Constant, Getting worse Improves with: None Worsens with: None Context: None Treatment Prior to Arrival Comment:: Has been getting IV antibiotics - Related Data Previous Rx's Medication Instructions Recorded Tramadol HCl [Ultram] 50 mg PO BID PRN 10 Days #20 tablet 03/08/17 Allergies Allergy/AdvReac Type Severity Reaction Status Date / Time NO KNOWN DRUG ALLERGY Allergy no Uncoded 03/06/17 19:03 allergies Travel Screening - Travel/Exposure Within Last 30 Days Have you traveled within the last 30 days?: No - Travel/Exposure Within Last Year Have you traveled outside the [place] in the last year?: Yes Location Detail:: [place] - Additonal Travel Details Have you been exposed to anyone with a communicable illness?: No - Travel Symptoms Symptom Screening: None Review of Systems Reviewed: No additional complaints except as noted below Constitutional: Reports: As per HPI. Denies: Chills, Fever, Malaise, Night sweats, Weakness, Weight change Eyes: Reports: As per HPI. Denies: Eye discharge, Eye pain, Photophobia, Vision change ENT: Reports: As per HPI. Denies: Congestion, Dental pain, Ear pain, Epistaxis , Hearing loss, Throat pain Respiratory: Reports: As per HPI. Denies: Cough, Dyspnea, Hemoptysis, Stridor, Wheezes Cardiovascular: Reports: As per HPI. Denies: Arrhythmia, Chest pain, Dyspnea on exertion, Edema, Murmurs, Orthopnea, Palpitations, Paroxysmal nocturnal dyspnea, Rheumatic Fever, Syncope Endocrine: Reports: As per HPI. Denies: Fatigue, Heat or cold intolerance, Polydipsia, Polyuria Gastrointestinal: Reports: As per HPI. Denies: Abdominal pain, Constipation, Diarrhea, Hematemesis, Hematochezia, Melena, Nausea, Vomiting Genitourinary: Reports: As per HPI. Denies: Dysuria, Frequency, Hematuria, Incontinence, Retention, Testicular pain, Testicular mass, Urgency Musculoskeletal: Reports: As per HPI. Denies: Arthralgia, Back pain, Gout, Joint swelling, Myalgia, Neck pain Skin: Reports: As per HPI, Other (swollen legs with serosanginous drainage from posterior leg). Denies: Bruising, Change in color, Change in hair/nails, Lesions, Pruritus, Rash Neurological: Reports: As per HPI. Denies: Abnormal gait, Confusion, Headache, Numbness, Paresthesias, Seizure, Tingling, Tremors, Vertigo, Weakness Psychiatric: Reports: As per HPI. Denies: Anxiety, Auditory hallucinations, Depression, Homicidal thoughts, Suicidal thoughts, Visual hallucinations Hematological/Lymphatic: Reports: As per HPI. Denies: Anemia, Blood Clots, Easy bleeding, Easy bruising, Swollen glands Past Medical History - SOCIAL HISTORY Smoking Status: Never smoker Alcohol Use: None Drug Use: None - RESPIRATORY Hx Respiratory Disorders: No - CARDIOVASCULAR Hx Cardio Disorders: Yes Hx Hypertension: Yes - NEURO Hx Neuro Disorders: No - GI Hx GI Disorders: Yes Hx Reflux: Yes - Hx Genitourinary Disorders: No - ENDOCRINE Hx Endocrine Disorders: Yes Hx Diabetes: Yes - MUSCULOSKELETAL Hx Musculoskeletal Disorders: No - PSYCH Hx Psych Problems: No - HEMATOLOGY/ONCOLOGY Hx Hematology/Oncology Disorders: No Family Medical History Any Significant Family History?: No Physical Exam - General General Appearance: Alert, Oriented x3, Cooperative, No acute distress - Head Head exam: Normal inspection - Eye Eye exam: Normal appearance, PERRL Pupils: Normal accommodation - ENT ENT exam: Normal exam, Mucous membranes moist, Normal external ear exam, Normal orophraynx, TM's normal bilaterally Ear exam: Normal external inspection. negative: External canal tenderness Nasal Exam: Normal inspection. negative: Discharge, Sinus tenderness Mouth exam: Normal external inspection, Tongue normal Teeth exam: Normal inspection. negative: Dental caries Throat exam: Normal inspection. negative: Tonsillar erythema, Tonsillar exudate - Neck Neck exam: Normal inspection, Full ROM. negative: Tenderness - Respiratory Respiratory exam: Normal lung sounds bilaterally. negative: Respiratory distress - Cardiovascular Cardiovascular Exam: Regular rate, Normal rhythm, Normal heart sounds - GI/Abdominal GI/Abdominal exam: Soft, Normal bowel sounds. negative: Tenderness - Rectal Rectal exam: Deferred - exam: Deferred - Extremities Extremities exam: Normal inspection, Full ROM, Normal capillary refill. negative: Tenderness - Back Back exam: Reports: Normal inspection, Full ROM. Denies: Muscle spasm, Rash noted, Tenderness - Neurological Neurological exam: Alert, Normal gait, Oriented X3, Reflexes normal - Psychiatric Psychiatric exam: Normal affect, Normal mood - Skin Skin exam: Other (edematous legs and erythema and oozing yellow serosanginous fluid out of the posterior left leg calf) Course Vital Signs 03/14/17 12:42 Temperature 98 F Pulse Rate 112 H Respiratory 20 Rate Blood Pressure 125/62 Pulse Ox 99 - Reevaluation(s) Reevaluation #1: Yun Drake came to the ED and vancomycin IV set up for another 7 days and lasix 40 mg BID PO set up and potassium oral set up by Yun Drake. 03/14/17 17:04 Medical Decision Making - Lab Data Result diagrams: 03/14/17 13:50 03/14/17 13:50 Disposition Clinical Impression: Cellulitis of leg, left, Lymphedema Cellulitis of lower extremity Qualifiers: Laterality: left Qualified Code(s): L03.116 - Cellulitis of left lower limb Disposition: Home, Self-Care Condition: (1) Good Instructions: Cellulitis (ED) Additional Instructions: elevate legs wear compression socks follow up with Yun Drake as scheduled Forms: Patient Portal Access Time of Disposition: 17:07 Quality - Quality Measures Quality Measures: N/A - Blood Pressure Screening Does Patient Have Any of the Following: No Blood Pressure Classification: Pre-Hypertensive BP Reading Systolic Measurement: 125 Diastolic Measurement: 62 Screening for High Blood Pressure: < Pre-Hypertensive BP, F/U Documented > [ G8950] Pre-Hypertensive Follow-up Interventions: Referral to alternative/primary care provider.
[2017-03-14 13:58] LABS: HEMATOCRIT 33.8 % (42.0-52.0); HEMOGLOBIN 10.9 gm/dl (14.0-18.0); MEAN CELL VOLUME 82.4 fl (81-97); MEAN CORPUSCULAR HGB CONC 32.2 g/dl (32-36); MEAN PLATELET VOLUME 9.7 fl (7.4-10.4); PLATELET COUNT 348 K/uL (130-400); RED CELL DISTRIBUTION WIDTH 15.4 % (11.5-14.5); WHITE BLOOD COUNT W/O DIFF 13.2 K/uL (4.2-12.2)
[2017-03-14 13:59] LABS: MEAN CORPUSCULAR HEMOGLOBIN 26.5 pg (27-33)
[2017-03-14 14:05] LABS: PLATELET ESTIMATE NORMAL (NORMAL)
[2017-03-14 14:11] LABS: BLOOD UREA NITROGEN 18 mg/dL (8-23)
[2017-03-14 14:12] LABS: EST GLOMERULAR FILTRATION RATE > 60 mL/min
[2017-03-14 14:14] LABS: GLUCOSE,RANDOM 237 mg/dL (74-109)
[2017-03-14] MEDS ORDERED: FUROSEMIDE IV 40MG/4ML VIAL IVP ONE (14:16)
[2017-03-14] MEDS ORDERED: VANCOMYCIN HCL 2,000 MG in 0.9 % SODIUM CHLORIDE 250ML 250 ML IVPB ONE (15:09)
[2017-03-14] MEDS ORDERED: VANCOMYCIN HCL 2,000 MG in 0.9 % SODIUM CHLORIDE 500ML 500 ML IVPB ONE (15:45)
== END 2017-03-14 18:28 | disposition home or self-care (01) ==
LOC: ER 12:12
DX: L03.116 Cellulitis of left lower limb (principal); I89.0 Lymphedema, not elsewhere classified; I10 Essential (primary) hypertension
CPT/HCPCS: 99284 ×2; 96374; 96375; 80048; 85027; J3370; J1940; J7040